=== PATIENT | male | born 1970 | race Caucasian/White ===

== ENCOUNTER 2024-01-03 11:43 | Emergency (ER) | payer OTHER, SELFPAY ==
--- NOTE | ~2024-01-03 | CT_ITS ---
EXAMINATION: CT CERVICAL SPINE WITHOUT CONTRAST CLINICAL INFORMATION: Trauma. COMPARISON: No similar priors. TECHNIQUE: Contiguous axial imaging was performed of the cervical spine without intravenous administration of contrast. Coronal and sagittal reformats were obtained at the acquisition workstation. This CT examination was performed using dose optimization techniques as appropriate, variously including the following: *Automated exposure control *Adjustment of mA and/or kV according to patient size (this includes techniques or standardized protocols for targeted exams where dose is matched to indication/reason for exam; i.e. extremities or head) *Use of iterative reconstruction technique DLP: 760 mGy-cm FINDINGS: The atlantooccipital and atlantoaxial articulations remain well aligned. Straightening of the normal cervical lordosis. No evidence of acute compression deformity or subluxation. Prominent anterior marginal osteophytes from C4 through C7. Moderate multilevel intervertebral disc height loss more prominent from C4 through C7. Mild multilevel facet/uncovertebral hypertrophy. There is no prevertebral soft tissue swelling. The thyroid gland and remaining cervical soft tissues are normal in appearance. The lung apices demonstrate no abnormalities. CT/CT cervical spine wo IV con IMPRESSION: 1. No acute cervical abnormalities. 2. Moderate multilevel cervical spondylosis. Electronically signed by: Kirstin Campblel MD 01/03/2024 01:56 PM EDT
--- NOTE | ~2024-01-03 | XR_ITS ---
EXAMINATION: XR SHOULDER, RIGHT CLINICAL INFORMATION: Work injury COMPARISON: None available. TECHNIQUE: AP external rotation, Grashey, scapular Y, and axillary views of the right shoulder. FINDINGS: The bones and soft tissues are normal. No fracture. Glenohumeral and acromioclavicular alignment is anatomic with normal joint space. Mild calcific tendinopathy. XR/XR shoulder RT min 2V IMPRESSION: Mild calcific tendinopathy. Electronically signed by: Ada Loja MD 01/03/2024 02:21 PM EDT
[2024-01-03 11:45] VITALS: BP 134/102; PULSE 81; RESP 20; TEMP 36.2; O2SAT 98; BMI 33.9
--- NOTE | 2024-01-03 11:47 | ED_ITS ---
HPI - Neck Pain/Injury General Chief Complaint: General Medical Stated Complaint: work inj Time Seen by Provider: 01/03/24 12:23 Source: patient and RN notes reviewed Mode of arrival: ambulatory Limitations: no limitations History of Present Illness ED Provider: Nohemy Minaya PA-C HPI Narrative: This is a 53-year-old male, with no known medical problems, who presents emergency department with complaints of back pain and right shoulder pain status post work-related injury which occurred 3 days ago. Patient states that while he was at work a steel plate fell onto his head and onto the back of his neck and slid down into his right shoulder region. He was wearing a tight had at the time. He is not on blood thinners, denies any loss consciousness. He states that the pain is in his neck as well as into his right shoulder. He states that occasionally he will get intermittent numbness and tingling down into his arm which he does not have at the time of the evaluation. He states pain worsens in his right shoulder with any movement. He states that the pain is alleviated at rest. Denies any severe headache, dizziness, blurred vision, chest pain, shortness of breath, abdominal pain, nausea, vomiting or diarrhea. No other complaints or concerns at this time. MD complaint: neck pain and neck injury Onset (ago): day(s) Place: work Radiation: right shoulder and upper back Severity: moderate Quality: aching Duration: constant Relieving factors: none Exacerbating factors: movement of extremity and movement of neck Associated symptoms: none Treatments prior to arrival: none Related Data Previous Rx's ?Medication ?Instructions ?Recorded acetaminophen 500 mg tablet 1,000 mg (2 x 500 mg) PO Q8H PRN 01/03/24 (Tylenol Extra Strength) pain #30 tabs cyclobenzaprine 10 mg tablet 10 mg PO TID PRN muscle spasm #12 01/03/24 tabs ibuprofen 600 mg tablet 600 mg PO Q6H PRN pain #30 tabs 01/03/24 Allergies Allergy/AdvReac Type Severity Reaction Status Date / Time No Known Allergies Allergy Verified 01/03/24 11:50 [No Known Allergies*] Review of Systems Review of Systems: Yes all other systems are reviewed and are negative Constitutional: Constitutional: Reports as per [facility] Social History Social History Advance Directives: No Advance Directives Information Provided: No Do you have a plan to hurt others: No Plan Physical Exam Vital Signs: Vital Signs: Last Vital Signs Temp 97.3 F 01/03/24 16:02 Pulse 88 01/03/24 16:02 Resp 20 01/03/24 16:02 BP 136/88 01/03/24 16:02 Pulse Ox 98 01/03/24 16:02 O2 Del Method Room Air 01/03/24 16:02 BMI result Body Mass Index 33.9 Const: General: cooperative, comfortable and no acute distress Orientation/consciousness: patient oriented x3 Limitations: no limitations HEENT: Head: Yes normal to inspection, Yes normocephalic and Yes atraumatic Ears: hearing grossly normal bilaterally General nose exam: Normal external nose present Face and sinus: Yes normal facial exam Mouth: Normal oral and palatal mucosa present, oropharynx normal and moist mucous membranes Throat: Yes posterior oropharynx normal Eyes: General: appearance normal, both eyes and all related structures Eyelids: Yes eyelids normal Conjunctivae: conjunctivae normal Sclerae: sclerae normal Pupils: Equal, round and reactive pupils present EOM: EOMs intact bilaterally Neck: Other: No midline spine tenderness, he does have tenderness palpation along the right paraspinous muscles with spasm, no overlying skin changes. Neck: Yes normal visual inspection, Yes full ROM and Yes no lymphadenopathy Lymphatic: no lymphadenopathy noted Chest: Chest palpation & inspection: normal inspection of the chest Resp: Effort & Inspection: normal respiratory effort and able to speak in complete sentences Auscultation: clear to auscultation bilaterally, no crackles, no rales, no rhonchi and no wheezes Cardio: Rate: regular rate Rhythm: regular rhythm Heart sounds: S1 normal heart sound present and S2 normal heart sound present GI: Inspection: Yes normal to inspection Skin: General skin exam: no rashes or lesions noted Trauma: no lacerations or abrasions Wounds: no wounds Neuro: General: patient oriented x3 and moves all extremities Cranial nerves: Yes Equal, round and reactive pupils present Extrem: Other: Right shoulder with tenderness to palpation throughout the entire right shoulder without any specific point tenderness, pain exacerbated with range of motion of the right shoulder. Limited abduction and forward flexion secondary to pain. Strong radial pulse. Circulation intact. General: Yes normal to inspection Right upper extremity: normal to inspection Left upper extremity: normal to inspection Right lower extremity: normal to inspection Left lower extremity: normal to inspection Course Course Course Narrative: This is a Rapid Medical Exam performed in triage by Arcelia Pierre PA-C. Full HPI, ROS and PE to be performed by primary ED provider. 53yo M presenting to the ED c/o neck pain s/p steel plate falling on neck/back of shoulders on Friday at 10:15am while at work. Did have hard hat on. denies MARTINEZ or LOC. taking AC. Admits to associated paresthesias down RUE PE: +palpable lump to cervical spine with tenderness. + midline cervical spinous tenderness. + bilateral paraspinal/trapezius muscle tenderness. Right shoulder with mild tenderness in limited ROM. Neurovascularly intact distally. Plan: Cervical spine CT, x-ray Medications Administered Discontinued Medications Generic Name Dose Route Start Last Admin Trade Name Freq PRN Reason Stop Dose Admin Acetaminophen 975 mg 01/03/24 13:37 01/03/24 13:51 Acetaminophen 325 Mg Tablet PO 01/03/24 13:38 975 mg ONCE ONE Administration Medical Decision Making Medical Decision Making [facility] Narrative: This is a 53-year-old male who presents emergency department with complaints of right shoulder and neck pain status post work-related injury which occurred 3 days ago. On arrival, vital signs within normal limits. He is speaking full sentences under no acute distress. He is neurologically intact without any focal deficits on examination. He does have tenderness palpation along the right lateral paraspinous muscles as well as the right shoulder. Differential diagnoses include fracture, sprain, strain, contusion. Cervical spine CT revealing no acute bony abnormalities however degenerative changes seen. Right shoulder with no acute bony abnormalities. Discussed with patient that we are unable to rule out any ligament to injury to his right shoulder, therefore it is important for him to follow-up with Orthopedics. He was discharged on Tylenol, Motrin, and muscle relaxants. Given strict return precautions. He understands agrees with plan. Patient stable discharge Differential Diagnosis Differential Diagnoses: The differential diagnosis associated with the presentation includes See above Radiology Impression Discussion of test interpretation with radiology: I have reviewed the radiologist's reading. Radiologist Impression: XR/XR shoulder RT min 2V IMPRESSION: Mild calcific tendinopathy. Electronically signed by: Ada Loja MD 01/03/2024 02:21 PM EDT Dictated By: Ada Loja MD CT/CT cervical spine wo IV con IMPRESSION: 1. No acute cervical abnormalities. 2. Moderate multilevel cervical spondylosis. Electronically signed by: Kirstin Campbell MD 01/03/2024 01:56 PM EDT RP Dictated By: Kirstin Campbell Discharge Plan Discharge Clinical Impression: Right shoulder pain, Cervical paraspinal muscle spasm Patient Disposition: Home, Self-Care Instructions: Muscle Spasm (ED), Shoulder Pain (ED) Additional Instructions: You were seen in the emergency department due to shoulder pain and neck pain. You have evidence of arthritis and degenerative changes in your shoulder and neck. Please use sling for comfort. Please be advised that you should not stay in the sling 247 or you will develop something called adhesive capsulitis. Please remove sling multiple times per day and perform gentle [id number] of your shoulder and arm. Take ibuprofen and or Tylenol as needed for pain and symptoms. Please take muscle relaxants as prescribed. Please be advised that this can cause drowsiness, do not drink alcohol or drive while taking this medication. If any new or worsening symptoms occur including but not limited to severe headache, dizziness, chest pain, shortness of breath, please seek emergent care. Call the orthopedic office on Friday to follow-up. Prescriptions: New ibuprofen 600 mg tablet 600 mg PO Q6H PRN (Reason: pain) Qty: 30 0RF acetaminophen [Tylenol Extra Strength] 500 mg tablet 1,000 mg PO Q8H PRN (Reason: pain) Qty: 30 0RF cyclobenzaprine 10 mg tablet 10 mg PO TID PRN (Reason: muscle spasm) Qty: 12 0RF Referrals: [facility] [place] Orthopedic Surgeons [Provider Group] Stand Alone Forms: Work/School Release Interventions: ED Discharge Assessment Last Done: 01/03/24 16:02 Discharge Date/Time: 01/03/24 16:03 Print Language: Portuguese
[2024-01-03] MEDS: Acetaminophen 325 MG TABLET 975 MG PO (13:51)
[2024-01-03 16:02] VITALS: BP 136/88; PULSE 88; RESP 20; TEMP 36.3; O2SAT 98
--- NOTE | 2024-01-03 16:02 | PC.NURSE ---
sling applied for comfort only, + csm/pulses to RUE, vss, discharging to home
== END 2024-01-03 16:03 | disposition home or self-care (01) ==
PROVIDERS: Emergency Provider Emergency Medicine; PCP Internal Medicine
DX: Z04.2 Encounter for examination and observation following work accident (principal); M25.511 Pain in right shoulder; M62.830 Muscle spasm of back; M54.2 Cervicalgia
CPT/HCPCS: 72125; 73030; 99283; 99284